=== PATIENT | female | born 2000 | race Caucasian/White ===

== ENCOUNTER 2023-10-23 11:23 | Emergency (ER) | payer OTHER ==
[~2023-10-23] VITALS: Ht 162.6 cm; Wt 72.7 kg
[2023-10-23 11:25] VITALS: TEMP 98.3
[2023-10-23 12:33] LABS: BASOPHILS % (AUTO) 0.6 % (0.0-2.0); EOSINOPHILS % (AUTO) 0.4 % (1.0-6.0); HEMATOCRIT 40.4 % (36-46); HEMOGLOBIN 13.7 g/dL (12.0-16.0); LYMPHOCYTES # (AUTO) 1.2 K/uL (1.0-4.8); LYMPHOCYTES % (AUTO) 14.7 % (22.0-44.0); MEAN CORPUSCULAR HEMOGLOBIN 28.7 pg (26.0-34.0); MEAN CORPUSCULAR HGB CONC 33.8 G/dL (31.0-37.0); MEAN CORPUSCULAR VOLUME 85 fL (80-100); MONOCYTES # (AUTO) 0.8 K/uL (0.1-1.0); MONOCYTES % (AUTO) 9.6 % (2.0-9.0); NEUTROPHILS # (AUTO) 6.3 K/uL (1.8-7.7); NEUTROPHILS % (AUTO) 74.7 % (40.0-70.0); PLATELET COUNT (AUTO) 379 K/uL (150-450); RED BLOOD CELL COUNT(AUTO) 4.76 MIL/uL (4.00-5.20); RED CELL DISTRIBUTION WIDTH 12.7 % (11.5-14.5); WHITE BLOOD COUNT (AUTO) 8.4 K/uL (4.5-11.0)
[2023-10-23] MEDS: SODIUM CHLORIDE 0.9% 1,000 ML IV ONE (12:38)
[2023-10-23] MEDS: ONDANSETRON HCL 4 MG/2 ML VIAL IVP ONE (12:38)
[2023-10-23] MEDS: LOPERAMIDE HCL 2 MG CAPSULE PO ONE (12:38)
[2023-10-23] MEDS: KETOROLAC TROMETHAMINE 30 MG/ML VIAL IVP ONE (12:38)
[2023-10-23 12:41] LABS: ANION GAP 10 mmol/L (8-16); CALCIUM, TOTAL 9.1 mg/dL (8.8-10.5); CARBON DIOXIDE 27 mmol/L (22-29); CHLORIDE 101 mmol/L (98-107); GLOMERULAR FILTR. RATE CALC > 60 mL/min (>60); GLUCOSE,RANDOM 131 mg/dL (70-110); POTASSIUM 3.5 mmol/L (3.5-5.1); SODIUM SERUM 138 mmol/L (136-145); UREA NITROGEN, BLOOD 6 mg/dL (7-18)
[2023-10-23 12:47] LABS: APPEARANCE,URINE HAZY (CLEAR); BILIRUBIN,URINE NEGATIVE (NEGATIVE); COLOR,URINE LIGHT YELLOW (YELLOW); GLUCOSE, URINE (UA) NEGATIVE (NEGATIVE); KETONES,URINE NEGATIVE (NEGATIVE); LEUKOCYTE ESTERASE ,URINE LARGE (NEGATIVE); NITRATE,URINE NEGATIVE (NEGATIVE); OCCULT BLOOD,URINE NEGATIVE (NEGATIVE); PROTEIN,URINE NEGATIVE (NEGATIVE); SPECIFIC GRAVITIY, URINE 1.016 (1.003-1.030); UROBILINOGEN,URINE <=1.0 mg/dL (<=1.0)
[2023-10-23 12:48] LABS: RBC,URINE None Seen /HPF (0-2)
[2023-10-23 12:49] LABS: BACTERIA,URINE Few /HPF (None Seen); SQUAMOUS EPITHELIAL CELL,UR Moderate /LPF (None Seen)
[2023-10-23 12:52] LABS: ALANINE AMINOTRANSFERASE 21 U/L (12-78); ALKALINE PHOSPHATASE 70 U/L (46-116); ASPARTATE AMINOTRANSFERASE 17 U/L (15-37); BILIRUBIN,TOTAL 0.4 mg/dL (0.1-1.0); HCG,QUANTITATIVE < 1 mIU/mL (0-6); LIPASE 46 U/L (16-77); TOTAL PROTEIN, SERUM 7.2 g/dL (6.4-8.2)
[2023-10-23] MEDS ORDERED: LOPE-232 PO (14:07)
[2023-10-23] MEDS ORDERED: CIPR250T6 PO (14:07)
[2023-10-23 14:19] VITALS: BP 134/80; PULSE 83; RESP 18
== END 2023-10-23 14:27 | disposition home or self-care (01) ==
LOC: EMS 11:23
DX: K52.9 Noninfective gastroenteritis and colitis, unspecified (principal); R10.84 Generalized abdominal pain; F32.A Depression, unspecified
CPT/HCPCS: 99285; 74176; 96374; 96361; 96375; 80053; 81001; 83690; 84702; 85025; 36415; 87086; 87186; J1885; J2405; J7030